=== PATIENT | female | born 1990 | race American Indian/Alaskan Native ===

== ENCOUNTER 2019-05-22 04:49 | Emergency (ER) | payer OTHER ==
[2019-05-22 05:05] VITALS: BP 153/97
--- NOTE | 2019-05-22 06:27 | Emergency Department Report ---
ED Female HPI - General Chief complaint: Urogenital-Female Stated complaint: VAGINAL OUTBREAK Source: patient Mode of arrival: Ambulatory Limitations: No Limitations - History of Present Illness Initial comments: Patient is a A1 28-year-old Afro-Armenian female with a history of chronic ych-auwlyrx-fdkddyftl diabetes, hypertension and didn't herpes presents to the ED with itchy painful vaginal lesions with purulent discharge for the last 2 days. Patient states that the lesions similar to those lesions she had when she contracted genital herpes. Patient denies dysuria, vaginal bleeding, dizziness, fever, chills, nausea, vomiting, abdominal pain, diarrhea, low back pain or sore throat and cough. MD Complaint: vaginal discharge, other (Painful vaginal lesions; vaginal pain) -: Sudden, days(s) (2) Location: labia, perineum Radiation: non-radiating Severity: moderate Severity scale (0 -10): 5 Quality: sharp, burning, aching Consistency: constant Improves with: none Worsens with: none Are you Now?: No Last Menstrual Period: 05/04/19 EDC: 02/08/20 Associated Symptoms: denies other symptoms, rash (Painful perineal and vaginal lesions). denies: vaginal discharge, vaginal bleeding, abdominal pain, na usea/vomiting, fever/chills, headaches, loss of appetite, dysuria, hematuria, shortness of breath, syncope, weakness - Related Data Sexually active: Yes : 3 Para: 2 A: 1 Previous Rx's Medication Instructions Recorded Last Taken Type Acetaminophen/Codeine [Tylenol 1 tab PO Q6H PRN #12 tab 05/22/19 Unknown Rx /Codeine # 3 tab] Acyclovir [Zovirax Tab] 400 mg PO Q8H #30 tab 05/22/19 Unknown Rx Fluconazole [Diflucan TAB] 150 mg PO ONCE #1 tablet 05/22/19 Unknown Rx Ibuprofen [Motrin] 800 mg PO Q8HR PRN #24 tablet 05/22/19 Unknown Rx Lidocaine [Lidocaine GEL] 30 gm TP Q6H PRN #1 gel..gram. 05/22/19 Unknown Rx cephALEXin [Keflex] 500 mg PO Q8HR #30 cap 05/22/19 Unknown Rx ED Review of Systems ROS: Stated complaint: VAGINAL OUTBREAK Other details as noted in HPI Constitutional: denies: chills, fever Eyes: denies: eye pain, eye discharge, vision change ENT: denies: ear pain, throat pain Respiratory: denies: cough, shortness of breath, wheezing Cardiovascular: denies: chest pain, palpitations Endocrine: no symptoms reported Gastrointestinal: denies: abdominal pain, nausea, diarrhea Genitourinary: discharge, other (painful vaginal and perineal lesions). denies: urgency, dysuria Musculoskeletal: denies: back pain, joint swelling, arthralgia Skin: denies: lesions Neurological: denies: headache, weakness, paresthesias Psychiatric: denies: anxiety, depression Hematological/Lymphatic: denies: easy bleeding, easy bruising ED Past Medical Hx - Past Medical History Previous Medical History?: Yes Hx Hypertension: Yes Hx Diabetes: Yes Additional medical history: Herpes - Surgical History Past Surgical History?: Yes Additional Surgical History: C-Sec - Social History Smoking Status: Former Smoker Substance Use Type: None - Medications Home Medications: Home Medications Medication Instructions Recorded Confirmed Last Taken Type Acetaminophen/Codeine [Tylenol 1 tab PO Q6H PRN #12 tab 05/22/19 Unknown Rx /Codeine # 3 tab] Acyclovir [Zovirax Tab] 400 mg PO Q8H #30 tab 05/22/19 Unknown Rx Fluconazole [Diflucan TAB] 150 mg PO ONCE #1 tablet 05/22/19 Unknown Rx Ibuprofen [Motrin] 800 mg PO Q8HR PRN #24 tablet 05/22/19 Unknown Rx Lidocaine [Lidocaine GEL] 30 gm TP Q6H PRN #1 gel..gram. 05/22/19 Unknown Rx cephALEXin [Keflex] 500 mg PO Q8HR #30 cap 05/22/19 Unknown Rx ED Physical Exam - General Limitations: No Limitations General appearance: alert, in no apparent distress - Head Head exam: Present: atraumatic, normocephalic, normal inspection - Eye Eye exam: Present: normal appearance, PERRL, EOMI Pupils: Present: normal accommodation - ENT ENT exam: Present: normal exam, normal orophraynx, mucous membranes moist, TM's normal bilaterally, normal external ear exam - Neck Neck exam: Present: normal inspection, full ROM - Respiratory Respiratory exam: Present: normal lung sounds bilaterally. Absent: respiratory distress, wheezes, rales, rhonchi, chest wall tenderness, accessory muscle use, decreased breath sounds, prolonged expiratory - Cardiovascular Cardiovascular Exam: Present: normal rhythm, tachycardia, normal heart sounds. Absent: systolic murmur, diastolic murmur, rubs, gallop - GI/Abdominal GI/Abdominal exam: Present: soft, normal bowel sounds. Absent: distended, tenderness, guarding, hyperactive bowel sounds, hypoactive bowel sounds, organomegaly - Bi-manual exam: Present: other (Pelvic exam declined by patient) - Extremities Exam Extremities exam: Present: normal inspection, full ROM, normal capillary refill - Back Exam Back exam: Present: normal inspection, full ROM - Neurological Exam Neurological exam: Present: alert, oriented X3, CN II-XII intact, normal gait, reflexes normal - Psychiatric Psychiatric exam: Present: normal affect, normal mood - Skin Skin exam: Present: warm, dry, intact, normal color. Absent: rash ED Course Vital Signs 05/22/19 05:04 Temperature 98.7 F Pulse Rate 102 H Respiratory 18 Rate Blood Pressure 153/97 O2 Sat by Pulse 97 Oximetry - Reevaluation(s) Reevaluation #1: 05/22/19 06:34 This is a 28 yo AA female with a h/o NIDDM and HTN and a remote history genital herpes who presented to the ED with c/o acute onset persistent severe itchy painful vaginal lesions with purulent discharge x 2 days. In the ED, patient is alert and oriented x 3 and is in no acute distress. Patient states that the lesions are similar to those lesions she had when she had Genital herpes. Urinalysis showed acute urinary tract infection. Patient was discharged home on medications including Acyclovir and Keflex. Patient was advised to follow-up with her primary care physician in 7-10 days for reevaluation or return to the ED immediately if symptoms get worse. 05/22/19 06:40 05/22/19 07:23 ED Medical Decision Making - Medical Decision Making This is a 28 yo AA female with a h/o NIDDM and HTN and a remote history genital herpes who presented to the ED with c/o acute onset persistent severe itchy painful vaginal lesions with purulent discharge x 2 days. In the ED, patient is alert and oriented x 3 and is in no acute distress. Patient states that the lesions are similar to those lesions she had when she had Genital herpes. Urinalysis showed acute urinary tract infection. Patient was discharged home on medications including Acyclovir and Keflex. Patient was advised to follow-up with her primary care physician in 7-10 days for reevaluation or return to the ED immediately if symptoms get worse. 05/22/19 06:40 - Differential Diagnosis Genital herpes; Zina Vaginitis; Bacterial vaginosis; Acute UTI Critical care attestation.: If time is entered above; I have spent that time in minutes in the direct care of this critically ill patient, excluding procedure time. ED Disposition Clinical Impression: Genital herpes simplex type 2, Acute urinary tract infection Disposition: TO HOME OR SELFCARE Is pt being admited?: No Does the pt Need Aspirin: No Condition: Stable Instructions: Genital Herpes Simplex (ED) Additional Instructions: Take medications with food, drink plenty of fluids, and follow up with Prescriptions: Fluconazole [Diflucan TAB] 150 mg PO ONCE #1 tablet cephALEXin [Keflex] 500 mg PO Q8HR #30 cap Lidocaine [Lidocaine GEL] 30 gm TP Q6H PRN #1 gel..gram. PRN Reason: Pain , Severe (7-10) Ibuprofen [Motrin] 800 mg PO Q8HR PRN #24 tablet PRN Reason: Pain , Severe (7-10) Acetaminophen/Codeine [Tylenol /Codeine # 3 tab] 1 tab PO Q6H PRN #12 tab PRN Reason: Pain , Severe (7-10) Acyclovir [Zovirax Tab] 400 mg PO Q8H #30 tab Referrals: PRIMARY CARE, [Primary Care Provider] - 3-5 Days Time of Disposition: 06:43 Print Language: CZECH
[2019-05-22 07:18] LABS: HCG Qualitative,Urine Negative (Negative)
[2019-05-22 07:19] LABS: Bacteria,Urine 2+ /HPF (Negative); Bilirubin,Urine NEG (Negative); Blood,Urine SM (Negative); Color,Urine Straw (Yellow); Mucus,Urine FEW /HPF; Protein,Urine <15 mg/dL mg/dL (Negative); Urobilinogen,Urine < 2.0 mg/dL (<2.0)
== END 2019-05-22 07:30 | disposition home or self-care (01) ==
LOC: ED 04:49
DX: N39.0 Urinary tract infection, site not specified (principal); A60.00 Herpesviral infection of urogenital system, unspecified; I10 Essential (primary) hypertension; E11.9 Type 2 diabetes mellitus without complications; Z87.891 Personal history of nicotine dependence; Z79.899 Other long term (current) drug therapy
CPT/HCPCS: 81001; 81025; 87086

== ENCOUNTER 2019-08-25 12:13 | Emergency (ER) | payer OTHER ==
[2019-08-25 12:44] VITALS: BP 160/97
--- NOTE | 2019-08-25 15:16 | Emergency Department Report ---
ED Back Pain/Injury HPI - General Chief Complaint: Back Pain/Injury Stated Complaint: TAILBONE PAIN Time Seen by Provider: 08/25/19 15:11 Source: patient Limitations: No Limitations - History of Present Illness Initial Comments: This is a 28-year-old female nontoxic, well nourished in appearance, no acute signs of distress presents to the ED with c/o of acute on chronic lower back pain. Patient stated that the past 2 days she was moving and developed this pain. Patient denies any trauma. Denies any bladder or bowel instability. Patient denies any urinary symptoms. Denies any fever, chills, nausea, vomiting, headache, stiff neck, chest pain or shortness of breath. Patient denies any numbness or tingling. Denies any allergies. MD Complaint: back pain -: days(s) Similar Symptoms Previously: Yes Radiation: none Severity: mild Severity scale (0 -10): 3 Quality: aching Consistency: intermittent Improves With: immobilization, sitting upright Worsens With: movement, walking Context: while lifting, turning/twisting Associated Symptoms: denies other symptoms. denies: confusion, weakness, chest pain, numbness, difficulty walking, cough, difficulty urinating, diaphoresis, incontinence, fever/chills, constipation, headaches, abdominal pain, loss of appetite, malaise, nausea/vomiting, rash, seizure, shortness of breath, syncope - Related Data Previous Rx's Medication Instructions Recorded Last Taken Type Acetaminophen/Codeine [Tylenol 1 tab PO Q6H PRN #12 tab 05/22/19 Unknown Rx /Codeine # 3 tab] Acyclovir [Zovirax Tab] 400 mg PO Q8H #30 tab 05/22/19 Unknown Rx Fluconazole [Diflucan TAB] 150 mg PO ONCE #1 tablet 05/22/19 Unknown Rx Ibuprofen [Motrin] 800 mg PO Q8HR PRN #24 tablet 05/22/19 Unknown Rx Lidocaine [Lidocaine GEL] 30 gm TP Q6H PRN #1 gel..gram. 05/22/19 Unknown Rx cephALEXin [Keflex] 500 mg PO Q8HR #30 cap 05/22/19 Unknown Rx Cyclobenzaprine [Flexeril] 10 mg PO QHS PRN #10 tablet 08/25/19 Unknown Rx Naproxen 500 mg PO Q12H PRN #20 tablet 08/25/19 Unknown Rx Allergies Allergy/AdvReac Type Severity Reaction Status Date / Time No Known Allergies Allergy Verified 08/25/19 15:11 ED Review of Systems ROS: Stated complaint: TAILBONE PAIN Other details as noted in HPI Constitutional: denies: chills, fever Eyes: denies: eye pain, eye discharge, vision change ENT: denies: ear pain, throat pain Respiratory: denies: cough, shortness of breath, wheezing Cardiovascular: denies: chest pain, palpitations Endocrine: no symptoms reported Gastrointestinal: denies: abdominal pain, nausea, diarrhea Genitourinary: denies: urgency, dysuria, discharge Musculoskeletal: back pain. denies: joint swelling, arthralgia Skin: denies: rash, lesions Neurological: denies: headache, weakness, paresthesias Psychiatric: denies: anxiety, depression Hematological/Lymphatic: denies: easy bleeding, easy bruising ED Past Medical Hx - Past Medical History Previous Medical History?: Yes Hx Hypertension: Yes Hx Diabetes: Yes Additional medical history: Herpes - Surgical History Past Surgical History?: Yes Additional Surgical History: C-Sec - Social History Smoking Status: Never Smoker Substance Use Type: None - Medications Home Medications: Home Medications Medication Instructions Recorded Confirmed Last Taken Type Acetaminophen/Codeine [Tylenol 1 tab PO Q6H PRN #12 tab 05/22/19 Unknown Rx /Codeine # 3 tab] Acyclovir [Zovirax Tab] 400 mg PO Q8H #30 tab 05/22/19 Unknown Rx Fluconazole [Diflucan TAB] 150 mg PO ONCE #1 tablet 05/22/19 Unknown Rx Ibuprofen [Motrin] 800 mg PO Q8HR PRN #24 tablet 05/22/19 Unknown Rx Lidocaine [Lidocaine GEL] 30 gm TP Q6H PRN #1 gel..gram. 05/22/19 Unknown Rx cephALEXin [Keflex] 500 mg PO Q8HR #30 cap 05/22/19 Unknown Rx Cyclobenzaprine [Flexeril] 10 mg PO QHS PRN #10 tablet 08/25/19 Unknown Rx Naproxen 500 mg PO Q12H PRN #20 tablet 08/25/19 Unknown Rx ED Physical Exam - General Limitations: No Limitations General appearance: alert, in no apparent distress - Head Head exam: Present: atraumatic, normocephalic - Neck Neck exam: Present: normal inspection, full ROM. Absent: tenderness, meningismus, lymphadenopathy - Extremities Exam Extremities exam: Present: normal inspection, full ROM - Back Exam Back exam: Present: normal inspection, full ROM, paraspinal tenderness (lumbar paraspinal). Absent: tenderness, CVA tenderness (R), CVA tenderness (L), muscle spasm, vertebral tenderness, rash noted - Expanded Back Exam Expanded Back exam: Absent: saddle anesthesia Back exam: Negative Straight Leg Raising: Left, Right - Neurological Exam Neurological exam: Present: alert, oriented X3, normal gait - Psychiatric Psychiatric exam: Present: normal affect, normal mood - Skin Skin exam: Present: warm, dry, intact, normal color. Absent: rash ED Course Vital Signs 08/25/19 12:43 Temperature 98.3 F Pulse Rate 102 H Respiratory 16 Rate Blood Pressure 160/97 O2 Sat by Pulse 97 Oximetry - Reevaluation(s) Reevaluation #1: 08/25/19 15:14 Patient is speaking in full sentences with no signs of distress noted. ED Medical Decision Making - Medical Decision Making This is a 28-year-old female that presents with low back strain. Patient is stable was examined by me. There is no spinal tenderness. There is no cauda equina syndrome during examination. No bladder or bowel instability. Patient is discharged with muscle relaxant and NSAID. Patient was instructed not to operate any machinery while taking muscle relaxant as they cause her drowsiness. Patient was referred to Follow-up with a primary care doctor in 3-5 days or if symptoms worsen and continue return to emergency room as soon as possible. At time of discharge, the patient does not seem toxic or ill in appearance. No acute signs of distress noted. Patient agrees to discharge treatment plan of care. No further questions noted by the patient. Critical care attestation.: If time is entered above; I have spent that time in minutes in the direct care of this critically ill patient, excluding procedure time. ED Disposition Clinical Impression: Low back strain Qualifiers: Encounter type: initial encounter Qualified Code(s): S39.012A - Strain of muscle, fascia and tendon of lower back, initial encounter Disposition: TO HOME OR SELFCARE Is pt being admited?: No Does the pt Need Aspirin: No Condition: Stable Instructions: Low Back Strain (ED), Cyclobenzaprine (By mouth) Additional Instructions: Follow-up with a primary care doctor in 3-5 days or if symptoms worsen and continue return to emergency room as soon as possible. Prescriptions: Cyclobenzaprine [Flexeril] 10 mg PO QHS PRN #10 tablet PRN Reason: Muscle Spasm Naproxen 500 mg PO Q12H PRN #20 tablet PRN Reason: Pain, Moderate (4-6) Referrals: PRIMARY CAREMD [Referring] - 3-5 Days GABRIELA FITZGERALD MD [Staff Physician] - 3-5 Days [facility] [Outside] - 3-5 Days Forms: Work/School Release Form(ED)
== END 2019-08-25 15:45 | disposition home or self-care (01) ==
LOC: ED 12:13
DX: S39.012A Strain of muscle, fascia and tendon of lower back, initial encounter (principal); I10 Essential (primary) hypertension; E11.9 Type 2 diabetes mellitus without complications; X58.XXXA Exposure to other specified factors, initial encounter; Y93.89 Activity, other specified; Y92.89 Other specified places as the place of occurrence of the external cause; Y99.8 Other external cause status; Z98.890 Other specified postprocedural states; Z79.899 Other long term (current) drug therapy

== ENCOUNTER 2019-11-22 22:03 | Emergency (ER) | payer OTHER ==
[2019-11-22 22:11] VITALS: BP 156/112
--- NOTE | 2019-11-22 22:36 | Emergency Department Report ---
Chief Complaint: Urogenital-Female Stated Complaint: OUTBREAK Time Seen by Provider: 11/22/19 22:23 - Exam Vital Signs: Vital Signs 11/22/19 22:07 Temperature 98.5 F Pulse Rate 119 H Respiratory 18 Rate Blood Pressure 156/112 O2 Sat by Pulse 100 Oximetry MSE screening note: Focused history and physical exam performed. Due to findings the following was ordered: ED Disposition for MSE Disposition: MED SCREENING EXAM-LEFT Is pt being admited?: No Does the pt Need Aspirin: No Condition: Stable Additional Instructions: refer to PCP or [facility] Referrals: [facility] [Outside] - 3-5 Days [facility] [Provider Group] - 3-5 Days [facility] [Provider Group] - 3-5 Days
--- NOTE | 2019-11-22 22:42 | Emergency Department Report ---
Chief Complaint: Urogenital-Female Stated Complaint: OUTBREAK Time Seen by Provider: 11/22/19 22:23 - HPI History of Present Illness: 29-year-old -[place] female presents to the emergency room stating a possible herpes outbreak. Patient states that it started today with itching and some mild pain. Patient states that she has not seen any blisters yet. - Exam Vital Signs: Vital Signs 11/22/19 22:07 Temperature 98.5 F Pulse Rate 119 H Respiratory 18 Rate Blood Pressure 156/112 O2 Sat by Pulse 100 Oximetry MSE screening note: Focused history and physical exam performed. Due to findings the following was ordered: 29-year-old -Sy[place] female presents to the emergency room stating a possible herpes outbreak. Patient states that it started today with itching and some mild pain. Patient states that she has not seen any blisters yet. Recommend to take Tylenol or ibuprofen for pain management and follow-up with your primary care provider or [facility]. ED Disposition for MSE Disposition: MED SCREENING EXAM-LEFT Is pt being admited?: No Does the pt Need Aspirin: No Condition: Stable Additional Instructions: Recommend to take Tylenol or ibuprofen for pain management and follow-up with your primary care provider or [facility]. Referrals: [facility] [Provider Group] - 3-5 Days [facility] [Provider Group] - 3-5 Days [facility] [Outside] - 3-5 Days
== END 2019-11-22 22:30 | disposition left against medical advice (07) ==
LOC: ED 22:03
DX: L29.9 Pruritus, unspecified (principal); Z53.21 Procedure and treatment not carried out due to patient leaving prior to being seen by health care provider
CPT/HCPCS: 99281